=== PATIENT | male | born 1955 | race Caucasian/White ===

== ENCOUNTER → 2016-09-06 | Outpatient (CLI) | payer MEDICAID ==
[~2016-09-06] MED LIST: ASPIRIN 81MG TA81 MG PO; CARVEDILOL 1212.5 MG OR; GLIPIZIDE10 MG PO; METFORMIN HCL850 MG PO; METOLAZONE 5MG T5 MG PO; PLAVIX 75MG TAB75 MG PO; POTASSIUM CHLO10 ME3 PO; ZOCOR40 MG PO
[2016-09-06 15:14] LABS: HEMOGLOBIN 15.2 g/dL (14.1-18.0); LYMPH # 3.6 K/mm3 (0.7-4.5); LYMPH % 54.3 % (10-50)
[2016-09-06 15:22] LABS: BUN 10 mg/dL (7-18)
[2016-09-06 15:23] LABS: GFR (ESTIMATED) 99 ML/MIN (>60)
[2016-09-06 15:35] LABS: AMPHETAMINES/METAMPHETAMINES NEGATIVE ng/mL (<1000)
[2016-09-06 16:20] LABS: NEUTROPHILS 28 % (42-76)
== END ==
LOC: LAB 13:39
PROVIDERS: Emergency Medicine
DX: R53.1 Weakness (principal); E13.9 Other specified diabetes mellitus without complications; Z79.899 Other long term (current) drug therapy

== ENCOUNTER → 2016-10-05 | Outpatient (CLI) | payer MEDICAID ==
[2016-10-05 14:13] LABS: AMPHETAMINES/METAMPHETAMINES NEGATIVE ng/mL (<1000)
[2016-10-05 14:33] LABS: BUN 9 mg/dL (7-18); GFR (ESTIMATED) 99 ML/MIN (>60)
[2016-10-11 08:40] LABS: Opiates Negative (Cutoff=100)
== END ==
LOC: LAB 13:19
PROVIDERS: Emergency Medicine
DX: Z79.899 Other long term (current) drug therapy (principal); E13.9 Other specified diabetes mellitus without complications

== ENCOUNTER 2016-11-23 13:19 | Emergency (ER) | payer MEDICAID ==
[~2016-11-23] VITALS: Ht 185.4 cm; Wt 157.4 kg
[~2016-11-23 13:19] MED LIST changes: -CARVEDILOL 1212.5 MG OR; +CARVEDILOL 1212.5 MG PO
--- OUTSIDE RECORDS SUMMARY | 2016-11-23 13:31 | External Medical Summary Rpt ---
Author Author [employer] Organization [employer] Address Unknown Phone Unavailable Purpose Continuity of Care Document - through 2016
--- OUTSIDE RECORDS SUMMARY | 2016-11-23 13:31 | External Medical Summary Rpt ---
Author Author , Organization [employer] Address Unknown Phone Unavailable Purpose Continuity of Care Document - 10-05-2016 through 2016 Results Labs Lab Lab Date Result Refere Interp Status Commen Order Detail nces retati t Range on Drugs identified in Urine by Screen method (11-19-2016 14:20) Ampheta NEGATIV <1000 complet mine 017 E ed [Presen 14:20 ce] in Urine by Screen method NEGATIV <50 complet oxy 017 E ed delta-9 14:20 tetrahy drocann abinol [Presen ce] in Unspeci fied specime n Hemoglobin A1c in Blood (11-17-2016 15:41) Hemoglo 9.4 % 0.0% High complet bin A1c 017 - ed in 15:41 7.0% Blood Drugs identified in Urine by Screen method (10-26-2016 14:25) Ampheta NEGATIV <1000 complet mine 017 E ed [Presen 14:25 ce] in Urine by Screen method NEGATIV <50 complet oxy 017 E ed delta-9 14:25 tetrahy drocann abinol [Presen ce] in Unspeci fied specime n Hemoglobin A1c in Blood (10-05-2016 10:00) Hemoglo 11.3 % 0.0% High complet bin A1c 017 - ed in 10:00 7.0% Blood Drugs identified in Urine by Screen method (10-05-2016 09:05) Ampheta NEGATIV <1000 complet mine 017 E ed [Presen 09:05 ce] in Urine by Screen method NEGATIV <50 complet oxy 017 E ed delta-9 09:05 tetrahy drocann abinol [Presen ce] in Unspeci fied specime n
--- OUTSIDE RECORDS SUMMARY | 2016-11-23 13:32 | External Medical Summary Rpt ---
Demographics Preferred Language Georgian Marital Status Unknown Hoahaoism Affiliation Unknown Race Unknown Ethnic Group Unknown Author Author , Organization [employer] Address Unknown Phone Unavailable Purpose Continuity of Care Document - through 2016 Immunization No patient found.
--- OUTSIDE RECORDS SUMMARY | 2016-11-23 13:32 | External Medical Summary Rpt ---
Demographics Preferred Language Setswana Marital Status Unknown Mu-Ism Affiliation Unknown Race Unknown Ethnic Group Unknown Author Author , Organization [employer] Address Unknown Phone Unavailable Purpose Continuity of Care Document - through 2016 Immunization No patient found.
--- OUTSIDE RECORDS SUMMARY | 2016-11-23 13:32 | External Medical Summary Rpt ---
Author Author [facility] Valentino, [employer] Organization [employer] Address Unknown Phone Unavailable Results Drugs identified in Urine by Screen method Observa Value Referen Units Interpr Notes Date tion ce etation Range Positive urine drug screen samples are stored for 7 days. Contact the Lab if confirmation of positives is needed. Ampheta NEGATIV <1000 ng/mL No No Nov 19 mine E informa informa 2017 [Presen tion in tion in 2:20 PM ce] in source source Urine data data by Screen method Barbitura <200 ng/mL No No Nov 19 david informati informati 2017 2:20 [Mass/vol on in on in PM ume] in source source Urine by data data Screen method Benzodiaz 200 ng/mL ng/mL No No Nov 19 epines informati informati 2017 2:20 [Mass/vol on in on in PM ume] in source source Serum or data data Plasma by Screen method Cocaine <300 ng/g No No Nov 19 [Mass/vol informati informati 2017 2:20 ume] in on in on in PM Unspecifi source source ed data data specimen Methadone <300 ng/mL No No Nov 19 informati informati 2017 2:20 [Mass/vol on in on in PM ume] in source source Unspecifi data data ed specimen Opiates <300 ng/mL High This is Nov 19 [Mass/vol an 2017 2:20 ume] in UNCONFIRM PM Unspecifi ED ed result. specimen This result is for medicalpu rposes and/or treatment only. Phencycli <25 ng/mL No No Nov 19 dine informati informati 2017 2:20 [Mass/vol on in on in PM ume] in source source Unspecifi data data ed specimen 11-Hydr NEGATIV <50 ng/mL No No Nov 19 oxy E informa informa 2017 delta-9 tion in tion in 2:20 PM source source tetrahy data data drocann abinol [Presen ce] in Unspeci fied specime n Basic metabolic panel in Blood Observa Value Referen Units Interpr Notes Date tion ce etation Range Urea 7 - 18 mg/dL Normal No Nov 17 nitrogen informati 2016 3:41 [Mass/vol on in PM ume] in source Serum or data Plasma Calcium 8.5 - mg/dL Normal No Nov 17 [Mass/vol 10.1 informati 2016 3:41 ume] in on in PM Serum or source Plasma data Chloride 98 - 107 mmoL/L Normal No Nov 17 [Moles/vo informati 2016 3:41 lume] in on in PM Serum or source Plasma data Carbon 21.0 - mmoL/L Normal No Nov 17 dioxide, 32.0 informati 2016 3:41 total on in PM [Moles/vo source lume] in data Serum or Plasma Creatinin 0.70 - mg/dL Normal No Nov 17 e 1.30 informati 2016 3:41 [Mass/vol on in PM ume] in source Serum or data Plasma Estimated >60 ML/MIN No REFERENCE Nov 17 informati RANGE: 2016 3:41 glomerula on in >60 PM r source ML/MIN/1. filtratio data 73 SQUARE n rate METERSIf (GF this patient is -A merican, then multiply theresult by 1.210. Glucose 74 - 106 mg/dL High No Nov 17 [Mass/vol informati 2016 3:41 ume] in on in PM Serum or source Plasma data Potassium 3.5 - 5.1 mmoL/L Normal No Nov 17 informati 2016 3:41 [Moles/vo on in PM lume] in source Serum or data Plasma Sodium 136 - 145 mmoL/L Normal No Nov 17 [Moles/vo informati 2016 3:41 lume] in on in PM Serum or source Plasma data Hemoglobin A1c in Blood Observa Value Referen Units Interpr Notes Date tion ce etation Range Hemoglo 9.4 0.0 - % High < 6% Nov 17 bin A1c 7.0 NON-CRYSTAL 2017 in BETIC 3:41 PM Blood LEVEL< 7% CONTROL LED DIABETI C LEVEL> 8% POORLY CONTROL LED DIABETI C LEVEL Microalb/Creat Ratio, Randm Ur Observa Value Referen Units Interpr Notes Date tion ce etation Range Microalbu Not ug/mL No No Oct 6 min Estab. informati informati 2017 2:25 [Mass/vol on in on in PM ume] in source source Urine data data Albumin/C 0.0 - No No INFCE Oct 26 reatinine 30.0 informati informati Result 2017 2:25 [Mass on in on in Units: PM ratio] in source source mg/g Urine data data creatPerf ormed at: [facility] - [facility] [address] [id number] [address] [place], [place] [id number] Employee Relations Specialist: Puneet Merino PhD, Phone: [phone] Creatinin Not mg/dL No No Oct 6 e Estab. informati informati 2017 2:25 [Mass/vol on in on in PM ume] in source source Urine data data Drugs identified in Urine by Screen method Observa Value Referen Units Interpr Notes Date tion ce etation Range Positive urine drug screen samples are stored for 7 days. Contact the Lab if confirmation of positives is needed. Ampheta NEGATIV <1000 ng/mL No No Oct 26 mine E informa informa 2017 [Presen tion in tion in 2:25 PM ce] in source source Urine data data by Screen method Barbitura <200 ng/mL No No Oct 26 david informati informati 2017 2:25 [Mass/vol on in on in PM ume] in source source Urine by data data Screen method Benzodiaz 200 ng/mL ng/mL No No Oct 26 epines informati informati 2017 2:25 [Mass/vol on in on in PM ume] in source source Serum or data data Plasma by Screen method Cocaine <300 ng/g No No Oct 26 [Mass/vol informati informati 2017 2:25 ume] in on in on in PM Unspecifi source source ed data data specimen Methadone <300 ng/mL No No Oct 26 informati informati 2017 2:25 [Mass/vol on in on in PM ume] in source source Unspecifi data data ed specimen Opiates <300 ng/mL High This is Oct 26 [Mass/vol an 2017 2:25 ume] in UNCONFIRM PM Unspecifi ED ed result. specimen This result is for medicalpu rposes and/or treatment only. Phencycli <25 ng/mL No No Oct 6 dine informati informati 2017 2:25 [Mass/vol on in on in PM ume] in source source Unspecifi data data ed specimen 11-Hydr NEGATIV <50 ng/mL No No Oct 6 oxy E informa informa 2017 delta-9 tion in tion in 2:25 PM source source tetrahy data data drocann abinol [Presen ce] in Unspeci fied specime n Basic metabolic panel in Blood Observa Value Referen Units Interpr Notes Date tion ce etation Range Urea 7 - 18 mg/dL Normal No October 05 nitrogen informati 2016 [Mass/vol on in 10:00 AM ume] in source Serum or data Plasma Calcium 8.5 - mg/dL Normal No October 05 [Mass/vol 10.1 informati 2016 ume] in on in 10:00 AM Serum or source Plasma data Chloride 98 - 107 mmoL/L Normal No October 05 [Moles/vo informati 2016 lume] in on in 10:00 AM Serum or source Plasma data Carbon 21.0 - mmoL/L Normal No October 05 dioxide, 32.0 informati 2016 total on in 10:00 AM [Moles/vo source lume] in data Serum or Plasma Creatinin 0.70 - mg/dL Normal No October 05 e 1.30 informati 2016 [Mass/vol on in 10:00 AM ume] in source Serum or data Plasma Estimated >60 ML/MIN No REFERENCE October 05 informati RANGE: 2017 glomerula on in >60 10:00 AM r source ML/MIN/1. filtratio data 73 SQUARE n rate METERSIf (GF this patient is -A merican, then multiply theresult by 1.210. Glucose 74 - 106 mg/dL High No October 05 [Mass/vol informati 2016 ume] in on in 10:00 AM Serum or source Plasma data Potassium 3.5 - 5.1 mmoL/L Normal No October 05 informati 2016 [Moles/vo on in 10:00 AM lume] in source Serum or data Plasma Sodium 136 - 145 mmoL/L Normal No October 05 [Moles/vo informati 2016 lume] in on in 10:00 AM Serum or source Plasma data Hemoglobin A1c in Blood Observa Value Referen Units Interpr Notes Date tion ce etation Range Hemoglo 11.3 0.0 - % High < 6% October 05 bin A1c 7.0 NON-CRYSTAL 2017 in BETIC 10:00 Blood LEVEL< AM 7% CONTROL LED DIABETI C LEVEL> 8% POORLY CONTROL LED DIABETI C LEVEL Opiates and Oxycodone(GC/MS),U Observa Value Referen Units Interpr Notes Date tion ce etation Range Oxycodo Negativ Cutoff= No No Test October 05 ne/Oxym e 100 informa informa include 2017 orph tion in tion in s 9:05 AM source source Oxycodo data data ne and [employer] honePer formed at: [facility] [id number] [place], [place] [id number] Directo r: Meliton Trevino MD, Phone: [phone] Opiates Negativ Cutoff= No No Opiate October 05 e 100 informa informa test 2017 tion in tion in include 9:05 AM source source s data data Codeine , Morphin e, Hydromo rphone, Hydroco done. Drugs identified in Urine by Screen method Observa Value Referen Units Interpr Notes Date tion ce etation Range Positive urine drug screen samples are stored for 7 days. Contact the Lab if confirmation of positives is needed. Ampheta NEGATIV <1000 ng/mL No No October 05 mine E informa informa 2016 [Presen tion in tion in 9:05 AM ce] in source source Urine data data by Screen method Barbitura <200 ng/mL No No October 05 david informati informati 2016 9:05 [Mass/vol on in on in AM ume] in source source Urine by data data Screen method Benzodiaz 200 ng/mL ng/mL No No October 05 epines informati informati 2016 9:05 [Mass/vol on in on in AM ume] in source source Serum or data data Plasma by Screen method Cocaine <300 ng/g No No October 05 [Mass/vol informati informati 2016 9:05 ume] in on in on in AM Unspecifi source source ed data data specimen Methadone <300 ng/mL No No October 05 informati informati 2016 9:05 [Mass/vol on in on in AM ume] in source source Unspecifi data data ed specimen Opiates <300 ng/mL No No October 05 [Mass/vol informati informati 2016 9:05 ume] in on in on in AM Unspecifi source source ed data data specimen Phencycli <25 ng/mL No No October 05 dine informati informati 2017 9:05 [Mass/vol on in on in AM ume] in source source Unspecifi data data ed specimen 11-Hydr NEGATIV <50 ng/mL No No October 05 oxy E informa informa 2016 delta-9 tion in tion in 9:05 AM source source tetrahy data data drocann abinol [Presen ce] in Unspeci fied specime n
--- OUTSIDE RECORDS SUMMARY | 2016-11-23 13:32 | External Medical Summary Rpt ---
[...] data creatPerf ormed at: [facility] - [facility] [address] [address] [address] [place], [place] [id number] Molding Utility Worker: Puneet Merino PhD, Phone: [phone] Creatinin Not mg/dL No No Oct [...] data ne and [employer] honePer formed at: [facility] [id number] [place], [place] [id number] Directo r: Meliton Trevino MD, Phone: [phone] Opiates Negativ Cutoff= No No Opiate October [...]
--- NOTE | 2016-11-23 14:05 | Emergency Room Report ---
History of Present Illness Time Seen by 1330 Presenting Problem in Triage Pt arrived:Walked Presenting Problem:PT REPORTS HE WOKE UP AT 0100 THIS MORNING WITH L SIDED FACIAL DROOP. 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 N Clinical Suspician of Infection? N Mental Status: 1 - Regular (Normal Baseline) Sepsis Risk:Low Sepsis Risk Have you (or family members/close friends) recently traveled outside the [place]? N If Yes, where/when: Have you had exposure to infectious disease within the past month? N TB? Other? Specify: Comment The patient woke up last night at 1 AM and noticed that he had a LEFT facial droop. He denies any numbness or weakness of the extremities, visual symptoms, speech disturbance except due to facial paralysis, auditory symptoms, or headache. The patient is diabetic and has had trouble filling his medications due to a change in pharmacies. He is out of his NovoLog 70/30 and glipizide. He still has metformin and Victoza. ALLERGIES Coded Allergies: No Known Allergies (11/23/16) Home Medications Reported Medications METFORMIN HCL (Metformin HCl) 850 MG PO BID ASPIRIN (Aspirin) 81 MG PO DAILY Metolazone (Metolazone 5MG Tablet) 5 MG PO BID Simvastatin (Zocor) 40 MG PO DAILY Carvedilol (Carvedilol 12.5MG) 12.5 MG PO BID Glipizide 10 MG PO BID POTASSIUM CHL (Potassium Chloride) 10 MEQ PO DAILY Furosemide (Lasix) 20 MG PO DAILY Ins Asp-Prt 70/Asp 30(Nvlogmx) (Novolog Mix 70-30 Flexpen Syrn) 48 UNITS SC BID Liraglutide (Victoza 2-Carson) 1.8 UNITS SC DAILY Pregabalin (Lyrica) 100 MG PO BID HYDROCODONE/ACETAMINOPHEN (Hydrocodon-Acetaminoph 7.5-325) 1 TAB PO TID History Medical History General CAD? Yes Angina: Yes RI: No Hypertension? Yes Hyperlipidemia? Yes CHF? No DVT? No PE? No COPD? No Asthma? No Anemia? No GERD? Yes Gastric ulcers? No GI Bleed? No Hernia? No Thyroid Problems? Yes Hypothyroidism? Yes CVA? No Seizures? No Diabetes? Yes Insulin Dependent: Yes Insulin Pump: No Home FSBS? Yes Renal Insuffiency? No End Stage Renal Disease? No UTI? No Stones? Yes GB Disease: No Nephritic Syndrome? No Asplenia? No Hepatitis? No Sickle Cell Disease? No Arthritis? Yes Migraines? No Cataracts? No Glaucoma? No MRSA? No HIV? No TB? No Anxiety? No Depression? No Cancer? No More? No Immunization Hx DT/Tetanus < 1 YR AGO Surgical Hx Previous Surgery?Y CARDIAC STENT Social History Smoking Hx Smoker: Former Smoker Tobacco: No Packs/day 1 1/2 - 2 Packs Alcohol Alcohol: No Review of Systems All Other Systems Reviewed and Negative Constitutional denies fever Psychiatric/Neurological see HPI, denies headache Physical Exam Vital Signs Vital Signs Date Time Temp Pulse Resp B/P Pulse O2 O2 Flow FiO2 Ox Delivery Rate 11/23 1420 73 18 151/86 93 11/23 1320 98.2 78 18 139/88 95 General Appearance obese Eye Exam - bilateral eye normal exam, bilateral eye PERRL, bilateral eye EOMI Ear, Nose, Throat hearing grossly normal, LEFT facial palsy, tympanic membranes normal Neck normal inspection, non-tender, supple, full range of motion Respiratory Status Yes: trachea midline, chest symmetrical, non tender chest. No: respiratory distress. Lung Sounds bilateral: normal breath sounds, lungs clear. Cardiovascular normal exam, regular rate/rhythm, no peripheral edema, no gallop, no JVD, no murmur, no rub, normal peripheral pulses Peripheral Pulses Pulses normal Yes Gastrointestinal normal bowel sounds, normal exam, non tender, soft, no organomegaly Extremities non-tender, normal range of motion, normal inspection Neurologic alert, oriented x 3, isolated LEFT facial palsy. Involves upper and lower face, eye. Normal sensory exam. All other cranial nerves are normal. Normal motor exam of the extremities. Normal cerebellar exam. Findings consistent with isolated Purdy's palsy. Mental status normal mood/affect Skin intact, normal color, warm/dry, no rash cons.w/shingles Medical Decision Making LABS/Meds/Orders Pt receiving controlled substance in ED? No Results/Orders Laboratory Tests 11/23/16 1326: Sodium Cancelled, Potassium Cancelled, Chloride Cancelled, Carbon Dioxide Cancelled, BUN Cancelled, Creatinine Cancelled, Estimated Creat Clear Cancelled, Estimated GFR (MDRD) Cancelled, Glucose Cancelled, Calcium Cancelled, PT Cancelled, INR Cancelled, WBC Cancelled, RBC Cancelled, Hgb Cancelled, Hct Cancelled, MCV Cancelled, RDW Cancelled, Plt Count Cancelled, Gran % Cancelled, Gran # Cancelled, Lymphocytes % Cancelled, Eosinophils % Cancelled, Basophils % Cancelled, Lymphocytes # Cancelled, Eosinophils # Cancelled, Basophils # Cancelled, PUBS MCHC Cancelled, MCH Cancelled Current Medication Orders Sig/Charles Start time Last Medication Dose Route Stop Time Status Admin Acyclovir Sodium 0 .STK-MED ONE 11/24 1423 DC PO Insulin Human [rDNA 0 .STK-MED ONE 11/24 1423 DC origin] SC Prednisone 0 .STK-MED ONE 11/24 1423 DC .ROUTE Acyclovir Sodium 800 MG ONCE ONE 11/23 1415 DC 11/23 PO 11/23 141 1426 Insulin Human [rDNA 15 UNITS ONCE ONE 11/23 1415 DC 11/23 origin] SC 11/23 141 1425 Prednisone 60 MG ONCE ONE 11/23 1415 DC 11/23 PO 11/23 141 1425 Sodium Chloride 10 ML PRN PRN 11/23 1330 DC IV 11/24 1327 Orders Procedure Date/time Status DIET-NOTHING BY MOUTH 11/23 D Active FSBS REQUEST BY CARE AREA 11/[address] HEAD REQ 11/23 1321 Complete Progress - 3:18 PM: No change in blood sugar, but the patient refuses another injection of insulin and wants to be discharged. He says he will manage his blood sugar at home. He says he can get his medications refilled tomorrow. He says that he has some insulin to use at home in a sliding scale fashion today. Departure Departure Disposition DC Home or Self Care(routine) Clinical Impression Primary Impression: Purdy's palsy Condition STABLE Referrals Nirmala PRESSLEY,Meliton Williamson (PCP/Family) Patient Instructions DI for Purdy's Palsy, DI for Hyperglycemia -- Adult Additional Instructions Check blood sugar before each meal and before bed. Return the emergency room if blood sugar greater than 500. Call your primary care physician tomorrow for follow-up of your blood sugar and Purdy's palsy. Prescriptions Current Visit Scripts Prednisone (Prednisone 10MG) 10 MG PO DAILY #27 TAB 6 po on days 1-2, then decrease dose by 1 pill per day until gone Famciclovir (Famciclovir 500MG) 500 MG PO TID #21 TAB ED Critical Care Critical Care No at 2551
[2016-11-23] MEDS ORDERED: LASIX20 MG PO (14:09)
--- NOTE | 2016-11-23 14:10 | RADIOLOGY REPORT PS360 ---
CT HEAD W/O CONTRAST HISTORY: LEFT SIDED FACIAL DROOP ORDERING PHYSICIAN: Matheus Lemus MD PATIENT AGE: 61 years COMPARISON: None TECHNIQUE: Axial images obtained without contrast. Brain and bone windows reviewed. FINDINGS: No midline shift, mass effect, intracranial hemorrhage, hydrocephalus, or extra-axial fluid collection is evident. The calvarium has an unremarkable appearance. No mastoid effusion. The visualized paranasal sinuses are unremarkable. IMPRESSION: Negative CT head without contrast. No acute finding.
[2016-11-23] MEDS ORDERED: NOVOLOG MI100 UNITS1 SC (14:11)
[2016-11-23] MEDS ORDERED: VICTOZA6 MG/ML SC (14:12)
[2016-11-23] MEDS ORDERED: LYRICA100 MG PO (14:14)
[2016-11-23] MEDS ORDERED: APAP/HYDROCODON1 TA9 PO (14:17)
[2016-11-23] MEDS ORDERED: FAMCICLOVIR500 MG PO (15:21)
[2016-11-23] MEDS ORDERED: PREDNISONE 10MG10 MG PO (15:21)
[2016-11-23 15:26] VITALS: BP 144/78
== END 2016-11-23 15:26 | disposition home or self-care (01) ==
LOC: ER 13:19
DX: G51.0 Bell's palsy (principal); E11.9 Type 2 diabetes mellitus without complications; I10 Essential (primary) hypertension; Z87.891 Personal history of nicotine dependence; K21.9 Gastro-esophageal reflux disease without esophagitis

== ENCOUNTER → 2017-02-09 | Outpatient (CLI) | payer MEDICAID ==
[~2017-02-09] MED LIST changes: +APAP/HYDROCODON1 TA9 PO; +FAMCICLOVIR500 MG PO; +LASIX20 MG PO; +LYRICA100 MG PO; +NOVOLOG MI100 UNITS1 SC; +PREDNISONE 10MG10 MG PO; +VICTOZA6 MG/ML SC
[2017-02-09 13:50] LABS: AMPHETAMINES/METAMPHETAMINES NEGATIVE ng/mL (<1000)
== END ==
LOC: LAB 11:50
PROVIDERS: Emergency Medicine
DX: Z79.899 Other long term (current) drug therapy (principal)

== ENCOUNTER → 2017-04-19 | Outpatient (CLI) | payer MEDICAID ==
[2017-04-19 16:38] LABS: BUN 9 mg/dL (7-18)
[2017-04-19 16:39] LABS: AMPHETAMINES/METAMPHETAMINES NEGATIVE ng/mL (<1000)
[2017-04-19 16:40] LABS: GFR (ESTIMATED) 99 ML/MIN (>60)
== END ==
LOC: LAB 15:27
PROVIDERS: Emergency Medicine
DX: E13.9 Other specified diabetes mellitus without complications (principal); Z79.899 Other long term (current) drug therapy

== ENCOUNTER → 2017-04-20 | Outpatient (CLI) | payer MEDICAID ==
--- NOTE | 2017-04-20 13:32 | RADIOLOGY REPORT PS360 ---
CHEST(2 VIEWS-NOT PORTABLE) HISTORY: RT HIP PAIN,COUGH ORDERING PHYSICIAN: BEATA ROMERO MD PATIENT AGE: 61 years COMPARISON: 06/08/2016 FINDINGS: Normal heart size. There is increased density in the left hilar region along with atelectatic change peripheral to this area. A hilar mass with postobstructive changes a consideration. There are chronic interstitial changes with patchy density in the right infrahilar region which may be due to an area of atelectasis or infiltrate. Previous chest CT of 06/22/2016 was abnormal showing multiple opacities.. There are few faint opacities in the right upper lobe not significant changed There is COPD IMPRESSION: Abnormal chest x-ray with left perihilar atelectatic change and possible perihilar mass along with right infrahilar atelectasis or infiltrate. Suggest chest CT with contrast for further evaluation.
--- NOTE | 2017-04-20 13:32 | RADIOLOGY REPORT PS360 ---
HIP RT 2-3V W/PELVIS IF PERFOR HISTORY: RT HIP PAIN,COUGH ORDERING PHYSICIAN: BEATA ROMERO MD PATIENT AGE: 61 years COMPARISON: None FINDINGS: No fracture or dislocation is evident. No significant degenerative change. No lytic or blastic change. Unremarkable soft tissues IMPRESSION: Negative hip
== END ==
LOC: RAD 11:40
DX: R05 Cough (principal); M25.551 Pain in right hip